=== PATIENT | female | born 1940 | race African-American/Black ===

== ENCOUNTER 2018-05-21 08:58 | Day surgery (SDC) | payer MEDICARE, OTHER ==
[~2018-05-21] VITALS: Ht 157.5 cm; Wt 64.4 kg
[2018-05-21] VITALS (11 sets, daily range): BP systolic 158–175; BP diastolic 58–74
[~2018-05-21 08:58] MED LIST: BENICAR40 MG ORAL; METOPROLOL SUCC25 MG ORAL; PLAVIX75 MG ORAL; SIMVASTATIN40 MG ORAL; ceFAZolin sod 2 GM in NS 55 ML IVPB ONE
--- NOTE | 2018-05-21 09:11 | Pre-Procedure Note/Attestation ---
Pre-Procedure Note/Attestation Complete Prior to Procedure Planned Procedure: right Procedure Narrative: wire localized biopsy of right breast lesion Indications for Procedure Pre-Operative Diagnosis: right breast DCIS Attestation I attest that I discussed the nature of the procedure; its benefits; risks and complications; and alternatives (and the risks and benefits of such alternatives ), prior to the procedure, with the patient (or the patient's legal credit representative). I attest that, if there was a reasonable possibility of needing a blood transfusion, the patient (or the patient's legal credit representative) was given the [facility] standardized written summary, pursuant to the [place] Blood Safety Act ([place] Health and Safety Code # 1645, as amended). I attest that I re-evaluated the patient just prior to the surgery and that there has been no change in the patient's H&P, except as documented below: Papo Tong May 21, 2018 09:11
[2018-05-21] MEDS ORDERED: Bacitracin 50000 Units Vial ONE (09:47)
[2018-05-21] MEDS ORDERED: Lidocaine 1% 10mg/ml/Epi 0.005mg/ml 30ml vial INJ ONE (09:47)
[2018-05-21] MEDS ORDERED: Bupivacaine 0.5% Inj 30 ml vial INJ ONE (09:47)
[2018-05-21] MEDS ORDERED: Lidocaine 1% MPF 10mg/ml 5ml ONE (09:48)
[2018-05-21] MEDS ORDERED: Propofol 200mg/20ml IV ONE (09:48)
[2018-05-21] MEDS ORDERED: Midazolam 2mg/2ml Inj ONE (09:49)
[2018-05-21] MEDS ORDERED: fentaNYL 100 mcg/2 mL IV ONE (09:49)
[2018-05-21] MEDS ORDERED: Zemuron 50mg/5ml Inj IV ONE (10:00)
[2018-05-21] MEDS ORDERED: LR 1000ml ONE (10:00)
[2018-05-21] MEDS ORDERED: NS Irrig 1000ml ONE (10:00)
[2018-05-21] MEDS ORDERED: LR 1000ml 1,000 ML IVLG SCH (10:44)
--- NOTE | 2018-05-21 10:44 | Anethesia Preoperative Eval ---
Anesthesia Pre-op PMH/ROS General Date of Evaluation: May 21, 2018 Time of Evaluation: 10:00 Anesthesiologist: ASA Score: ASA 3 Mallampati Score Class I : Soft palate, uvula, fauces, pillars visible Class II: Soft palate, uvula, fauces visible Class III: Soft palate, base of uvula visible Class IV: Only hard plate visible Mallampati Classification: Class II Surgeon: neto Diagnosis: right breast lesion Surgical Procedure: wire localized excisional biopsy of right breast lesion Anesthesia History: none Allergies: Coded Allergies: No Known Allergies (Unverified , 05/20/18) Past Medical History Cardiovascular: Reports: HTN, other - high cholesterol; Denies: CAD, [place], valve dz, arrhythmia Pulmonary: Denies: asthma, COPD, JIMY, other Gastrointestinal/Genitourinary: Denies: GERD, CRI, ESRD, other Neurologic/Psychiatric: Denies: dementia, CVA, depression/anxiety, TIA, other Endocrine: Denies: DM, hypothyroidism, steroids, other HEENT: Denies: cataract (L), cataract (R), glaucoma, [place] (L), [place] (R), other Hematology/Immune: Reports: other - anticoagulant therapy; Denies: anemia, DVT, bleeding disorder Musculoskeletal/Integumentary: Denies: OA, RA, DJD, DDD, edema, other PMH Narrative: right breast lesion PSxH Narrative: tubal ligation Anesthesia Pre-op Phys. Exam Physician Exam Last Vital Signs Date Time Temp Pulse Resp B/P (MAP) Pulse Ox O2 Delivery O2 Flow Rate FiO2 05/21/18 09:15 97.0 72 20 175/74 (107) 99 97.0 05/21/18 09:13 Room Air Constitutional: NAD Cardiovascular: RRR Respiratory: CTA Gastrointestinal: S/NT/ND Airway Exam Mallampati Score: Class II MO: full ROM: full Teeth: intact, other - upper and lower dental implants Dentures: upper, lower Anesthesia Pre-op A/P Risk Assessment & Plan Assessment: asa 3 Plan: ETGA Status Change Before Surgery: No Pre-Antibiotics Drug: ancef 2 grams Given Within 1 Hr of Incision: Yes Time Given: 10:30 Sarina Drummond M.D. May 21, 2018 10:44
[2018-05-21] MEDS ORDERED: Hydromorphone 0.5mg/0.5ml inj IVP PRN (10:45)
[2018-05-21] MEDS ORDERED: DiphenhydrAMINE 50mg/ml Inj IVP PRN (10:45)
[2018-05-21] MEDS ORDERED: Labetalol 5mg/ml 20ml vial IV PRN (10:45)
[2018-05-21] MEDS ORDERED: fentaNYL 100 mcg/2 mL IV PRN (10:45)
[2018-05-21] MEDS ORDERED: ePHEDrine 50mg/ml Inj ONE (10:58)
[2018-05-21] MEDS ORDERED: Glycopyrrolate 0.2mg/ml 1ml Vial ONE (11:09)
[2018-05-21] MEDS ORDERED: Neostigmine 1mg/ml 10ml Inj ONE (11:09)
[2018-05-21] MEDS ORDERED: Dexamethasone 4mg/ml vial ONE (11:09)
--- NOTE | 2018-05-21 11:23 | Brief Operative Note ---
Immediate Post Operative Note Operative Note Pre-op Diagnosis: right breast DCIS Procedure: wire localized biopsy of right breast lesion Post-op Diagnosis: same as pre-op Surgeon: neto Anesthesiologist: Anesthesia: general, local Specimen: yes Complications: none Condition: stable Fluids: see records Estimated Blood Loss: minimal Drains: none Implant(s) used?: No Papo Tong May 21, 2018 11:23
[2018-05-21] MEDS ORDERED: Tylenol #3 tab (300mg/30mg) ORAL PRN (11:30)
[2018-05-21] MEDS ORDERED: HYDROmorphone 1mg/ml Carpuject SUBQ PRN (11:30)
[2018-05-21] MEDS ORDERED: D5 1/2NS 1,000 ML IV SCH (11:30)
[2018-05-21] MEDS ORDERED: Norco 5mg/325mg tab ORAL PRN (11:30)
--- NOTE | 2018-05-21 11:41 | Immediate Post-Op Evaluation ---
Immediate Post-Op Evalulation Immediate Post-Op Evalulation Procedure: wire localized right breast excisional biopsy Date of Evaluation: May 21, 2018 Time of Evaluation: 11:25 IV Fluids: 300ml LR Blood Products: 0 Estimated Blood Loss: 5ml Urinary Output: 0 Blood Pressure Systolic: 172 Blood Pressure Diastolic: 69 Pulse Rate: 96 Respiratory Rate: 20 O2 Sat by Pulse Oximetry: 100 Temperature (Fahrenheit): 97.1 Pain Score (1-10): 0 Nausea: No Vomiting: No Complications none Patient Status: awake, patent, none Hydration Status: adequate Drug: ancef 2 grams Given Within 1 Hr of Incision: Yes - 10 Time Given: 10:30 Sarina Drummond M.D. May 21, 2018 11:41
--- NOTE | 2018-05-21 13:18 | 48 Hour Post Anesthesia Eval ---
Post Anesthesia Evaluation Procedure: wire localized right breast excisional biopsy Date of Evaluation: May 21, 2018 Time of Evaluation: 12:18 Blood Pressure Systolic: 158 0: 62 Pulse Rate: 71 Respiratory Rate: 18 Temperature (Fahrenheit): 98 O2 Sat by Pulse Oximetry: 100 Airway: patent Nausea: No Vomiting: No Pain Intensity: 0 Hydration Status: adequate Mental Status/LOC: patient returned to baseline Post-Anesthesia Complications: none Follow-up care needed: ready to discharge Sarina Drummond M.D. May 21, 2018 13:18
--- NOTE | 2018-05-22 | Operative Note - Dictated ---
DATE OF OPERATION: 05/21/2018 PREOPERATIVE DIAGNOSIS: Right breast ductal carcinoma in situ. POSTOPERATIVE DIAGNOSIS: Right breast ductal carcinoma in situ. OPERATION PERFORMED: Wire-localized biopsy of right breast lesion. ATTENDING SURGEON: Papo Tong M.D. ANESTHESIOLOGIST: Dr. Drummond. ANESTHESIA: General MANAGER MEDICAL AFFAIRS. ESTIMATED BLOOD LOSS: Minimal. IV FLUIDS: Please see anesthesia records. SPECIMENS: Wire-localized right breast tissue with wire and clip being confirmed radiographically, sent to pathology for review. DRAINS: None. ESTIMATED BLOOD LOSS: Minimal. COMPLICATIONS: None. WOUND CLASSIFICATION: Class I. COUNT: Sponge and needle count correct x2. ANTIBIOTICS: A 2 g Ancef IV given 1 hour prior to cut time. INDICATIONS FOR PROCEDURE: This is a 78-year-old female, who was noted to have spiculated calcifications in the right breast on mammography. Stereotactic core biopsies were performed and DCIS was identified. A clip was left in place and post films identified no remaining calcifications, but clip in appropriate positioning. Further imaging questioned a left breast mass and an MRI was performed and after further workup, the left breast mass was no longer present and no biopsy was necessary. The patient was seen by primary care physician, Dr. Adair and oncologist, Dr. Yanet Rodríguez and after appropriate workup, plans for wire-localized excision were made. The procedure was indicated and recommended. Risks, benefits, and alternatives were discussed with the patient in detail who consented for surgery. The patient was scheduled for localization at the breast center in the morning of procedure followed by surgery. OPERATIVE NOTE: The patient initially went to the breast wood[place] and wire localization was performed of the area of interest with clip being noted. Following this, the patient was preoperatively checked in and site marked. The patient was then taken to the operating room and placed on the operative table in supine position with bilateral arms out. Preoperative time-out was taken identifying the patient, procedure, operative site, and surgical staff. SCDs were placed. General anesthesia was induced. The patient was intubated. The right breast and was clipped, prepped, and draped in the standard surgical fashion. An area from the prior core biopsy site was identified approximately 1-2 cm from the wire localization site. Decision was made to make an elliptical incision around this and after reviewing mammographic and ultrasound findings, and location of the wire, it was found to be appropriate place. Local anesthetic was infiltrated and an elliptical low vertical incision was made around the prior biopsy site. This was taken down to the wire which could be identified and the wire was cut and brought into the operative field. Following this, the distal end of the wire was identified and a circumferential area of tissue including the clip and wire were taken with gender standpoint. The biopsy was oriented with skin being superficial, long silk being the lateral, wire being medial, and short silk being superior. Diagnostic imaging identified that wire and clip were in the sample specimen and this was then sent to pathology for review. Local anesthetic was infiltrated into the operative site. Hemostasis was obtained with electrocautery. Wound was irrigated. Following this, the incision was then closed in a two-layer fashion beginning with 3-0 Vicryl interrupted sutures followed by a 4-0 Monocryl subcuticular running suture. Mastisol and Steri-Strips were placed followed by gauze and dressing. A garment was then placed. The patient tolerated the procedure well, was extubated, and taken to postanesthesia care unit in stable condition where all postoperative instructions and prescriptions were given to the patient. Rui Kim JOB#: [id number] CC:
== END 2018-05-21 12:55 | disposition home or self-care (01) ==
LOC: SUR 08:58
DX: D05.81 Other specified type of carcinoma in situ of right breast (principal); Z79.02 Long term (current) use of antithrombotics/antiplatelets; I10 Essential (primary) hypertension; E78.00 Pure hypercholesterolemia, unspecified
CPT/HCPCS: 19101; J0690; J1100; J2250; J2405; J2704; J2710; J3010; J7120; 94003; 94150

== ENCOUNTER 2018-06-15 05:51 | Day surgery (SDC) | payer MEDICARE, OTHER ==
[~2018-06-15] VITALS: Ht 157.5 cm; Wt 65.3 kg
[2018-06-15] VITALS (10 sets, daily range): BP systolic 119–153; BP diastolic 47–67
[~2018-06-15 05:51] MED LIST changes: -ceFAZolin sod 2 GM in NS 55 ML IVPB ONE
--- NOTE | 2018-06-15 06:49 | Pre-Procedure Note/Attestation ---
Pre-Procedure Note/Attestation Complete Prior to Procedure Planned Procedure: right Procedure Narrative: Re-excision lumpectomy right breast margins Indications for Procedure Pre-Operative Diagnosis: right breast DCIS Attestation I attest that I discussed the nature of the procedure; its benefits; risks and complications; and alternatives (and the risks and benefits of such alternatives ), prior to the procedure, with the patient (or the patient's legal apprenticeship training representative). I attest that, if there was a reasonable possibility of needing a blood transfusion, the patient (or the patient's legal apprenticeship training representative) was given the [facility] standardized written summary, pursuant to the [place] Blood Safety Act ([place] Health and Safety Code # 1645, as amended). I attest that I re-evaluated the patient just prior to the surgery and that there has been no change in the patient's H&P, except as documented below: Papo Tong Jun 15, 2018 06:49
--- NOTE | 2018-06-15 06:53 | History and Physical ---
History of Present Illness General Date patient seen: Jun 15, 2018 Present Illness HPI 78F well known to me from recent surgery. Biopsy proven right breast DCIS s/p lumpectomy. Positive margins requiring re-excision today. Allergies: Coded Allergies: No Known Allergies (Unverified , 05/20/18) Medication History Scheduled Clopidogrel Bisulfate* (Plavix*), 75 MG ORAL DAILY, (Reported) Metoprolol Succinate* (Metoprolol Succinate*), 12.5 MG ORAL DAILY, (Reported) Olmesartan Medoxomil (Benicar), 40 MG ORAL DAILY, (Reported) Simvastatin (Zocor), 40 MG ORAL BEDTIME, (Reported) Patient History Healthcare decision maker N Resuscitation status Advanced Directive on File Past Medical/Surgical History Past Medical/Surgical History: (1) DCIS (ductal carcinoma in situ) of breast Review of Systems All Other Systems: negative except mentioned in HPI Physical Exam General Appearance: no apparent distress Lines, tubes and drains: peripheral HEENT: normocephalic, atraumatic, PERRL Neck: normal inspection Respiratory/Chest: normal breath sounds, no respiratory distress, no accessory muscle use Cardiovascular/Chest: normal rate Abdomen: soft, no organomegaly Extremities: non-tender Skin Exam: normal pigmentation Neurologic: alert, oriented x 3 Last 24 Hour Vital Signs Date Time Temp Pulse Resp B/P (MAP) Pulse Ox O2 Delivery O2 Flow Rate FiO2 06/15/18 06:45 Room Air 06/15/18 06:38 98.3 76 18 153/67 (95) 98 98.3 Height (Feet): 5 Height (Inches): 2.00 Weight (Pounds): 144 Assessment/Plan Problem List: (1) DCIS (ductal carcinoma in situ) of breast Assessment & Plan: Right breast DCIS s/p wire localized lumpectomy. path with positive margin. -re-excision lumpectomy right breast DCIS today -npo -iv fluids -consent -Ancef 2g ICD Codes: D05.10 - Intraductal carcinoma in situ of unspecified breast SNOMED: [id number], [id number] Qualifiers: Qualified Codes: D05.11 - Intraductal carcinoma in situ of right breast Status: stable Papo Tong Jun 15, 2018 06:53
[2018-06-15] MEDS ORDERED: Midazolam 2mg/2ml Inj ONE (07:00)
[2018-06-15] MEDS ORDERED: ceFAZolin sod 2 GM in D5W 110 ML IV ONE (07:00)
[2018-06-15] MEDS ORDERED: fentaNYL 100 mcg/2 mL IV ONE (07:00)
[2018-06-15] MEDS ORDERED: Propofol 200mg/20ml IV ONE (07:00)
[2018-06-15] MEDS ORDERED: Lidocaine 1% MPF 10mg/ml 5ml ONE (07:00)
[2018-06-15] MEDS ORDERED: Bupivacaine 0.5% Inj 30 ml vial INJ ONE (07:16)
[2018-06-15] MEDS ORDERED: Lidocaine 1% 10mg/ml/Epi 0.005mg/ml 30ml vial INJ ONE (07:16)
[2018-06-15] MEDS ORDERED: EPINEPHrine 1mg/1ml Amp ONE (07:16)
[2018-06-15] MEDS ORDERED: Bacitracin 50000 Units Vial ONE (07:17)
[2018-06-15] MEDS ORDERED: LR 1000ml ONE (07:30)
[2018-06-15] MEDS ORDERED: LR 1000ml 1,000 ML IVLG SCH (08:04)
--- NOTE | 2018-06-15 08:04 | Anethesia Preoperative Eval ---
Anesthesia Pre-op PMH/ROS General Date of Evaluation: Jun 15, 2018 Time of Evaluation: 07:15 Anesthesiologist: Darwin ASA Score: ASA 2 Mallampati Score Class I : Soft palate, uvula, fauces, pillars visible Class II: Soft palate, uvula, fauces visible Class III: Soft palate, base of uvula visible Class IV: Only hard plate visible Mallampati Classification: Class II Surgeon: Sav Diagnosis: R breast CA Surgical Procedure: R breast partial mastectomy Anesthesia History: none Family History: no anesthesia problems Allergies: Coded Allergies: No Known Allergies (Unverified , 05/20/18) Past Medical History Cardiovascular: Reports: HTN - stable; Denies: CAD, CT, valve dz, arrhythmia, other Pulmonary: Denies: asthma, COPD, JIMY, other Gastrointestinal/Genitourinary: Reports: GERD - mild Neurologic/Psychiatric: Denies: dementia, CVA, depression/anxiety, TIA, other Endocrine: Denies: DM, hypothyroidism, steroids, other HEENT: Reports: cataract (L), cataract (R) - s/p Sx Hematology/Immune: Denies: anemia, DVT, bleeding disorder, other Musculoskeletal/Integumentary: Denies: OA, RA, DJD, DDD, edema, other PMH Narrative: as above PSxH Narrative: Bilateral cataracts, R breast Anesthesia Pre-op Phys. Exam Physician Exam Last Vital Signs Date Time Temp Pulse Resp B/P (MAP) Pulse Ox O2 Delivery O2 Flow Rate FiO2 06/15/18 06:45 Room Air 06/15/18 06:38 98.3 76 18 153/67 (95) 98 98.3 Constitutional: NAD Neurologic: CN 2-12 intact Cardiovascular: RRR, no M/R/G Respiratory: CTA Gastrointestinal: S/NT/ND Airway Exam Mallampati Score: Class II Neck: stiff ROM: limited Teeth: intact Dentures: no upper, no lower Anesthesia Pre-op A/P Labs see chart Studies Pre-op Studies: EKG - NSR Risk Assessment & Plan Assessment: ASA 2 Plan: GA with LMA Status Change Before Surgery: No Pre-Antibiotics Drug: Ancef 1gr. Given Within 1 Hr of Incision: Yes Time Given: 07:50 Richmond Granados MD Jun 15, 2018 08:04
[2018-06-15] MEDS ORDERED: Ketorolac 30mg Inj IV PRN (08:15)
[2018-06-15] MEDS ORDERED: DiphenhydrAMINE 50mg/ml Inj IVP PRN (08:15)
[2018-06-15] MEDS ORDERED: fentaNYL 100 mcg/2 mL IV PRN (08:15)
--- NOTE | 2018-06-15 08:47 | Immediate Post-Op Evaluation ---
Immediate Post-Op Evalulation Immediate Post-Op Evalulation Procedure: R breast partial mastectomy Date of Evaluation: Jun 15, 2018 Time of Evaluation: 08:46 IV Fluids: 800 Blood Products: none Estimated Blood Loss: min Urinary Output: none Blood Pressure Systolic: 128 Blood Pressure Diastolic: 56 Pulse Rate: 72 Respiratory Rate: 20 O2 Sat by Pulse Oximetry: 99 Temperature (Fahrenheit): 97.5 Pain Score (1-10): 1 Nausea: No Vomiting: No Complications none Patient Status: awake, patent, none Hydration Status: adequate Richmond Granados MD Jun 15, 2018 08:47
--- NOTE | 2018-06-15 08:55 | Brief Operative Note ---
Immediate Post Operative Note Operative Note Pre-op Diagnosis: right breast DCIS Procedure: Re-excisional lumpectomy right breast Post-op Diagnosis: same as pre-op plus - right breast DCIS w/ positive margins s/p lumpectomy Findings: consistent w/pre-op dx studies Surgeon: neto Anesthesiologist: cornelia Anesthesia: general Specimen: yes Complications: none Condition: stable Fluids: see records Estimated Blood Loss: minimal Drains: none Implant(s) used?: No Papo Tong Jun 15, 2018 08:55
--- NOTE | 2018-06-15 09:17 | 48 Hour Post Anesthesia Eval ---
Post Anesthesia Evaluation Procedure: R breast partial mastectomy Date of Evaluation: Jun 15, 2018 Time of Evaluation: 09:16 Blood Pressure Systolic: 124 0: 59 Pulse Rate: 65 Respiratory Rate: 20 Temperature (Fahrenheit): 97.6 O2 Sat by Pulse Oximetry: 98 Airway: patent Nausea: No Vomiting: No Pain Intensity: 1 Hydration Status: adequate Cardiopulmonary Status: stable Mental Status/LOC: patient returned to baseline Follow-up Care/Observations: n/a Post-Anesthesia Complications: none Follow-up care needed: ready to discharge Richmond Granados MD Jun 15, 2018 09:17
[2018-06-15] MEDS ORDERED: D5 1/2NS 1,000 ML IV SCH (16:01)
[2018-06-15] MEDS ORDERED: Tylenol #3 tab (300mg/30mg) ORAL PRN (16:01)
[2018-06-15] MEDS ORDERED: HYDROmorphone 1mg/ml Carpuject SUBQ PRN (16:01)
[2018-06-15] MEDS ORDERED: Norco 5mg/325mg tab ORAL PRN (16:01)
--- NOTE | 2018-06-16 21:15 | Operative Note - Dictated ---
DATE OF OPERATION: 06/15/2018 PREOPERATIVE DIAGNOSIS: Right breast ductal carcinoma in situ with positive margin. POSTOPERATIVE DIAGNOSIS: Right breast ductal carcinoma in situ with positive margin. OPERATION PERFORMED: Reexcisional lumpectomy of right breast DCIS. ATTENDING SURGEON: Papo Tong M.D. AGRONOMY SPECIALIST: None. ANESTHESIOLOGIST: Richmond Granados M.D. ANESTHESIA: General PHYTOPATHOLOGY TEACHER. ESTIMATED BLOOD LOSS: Minimal. IV FLUIDS: Please see anesthesia records. COMPLICATIONS: None. SPECIMEN: right breast reexcisional lumpectomy with a long silk suture marking lateral, short silk suture marking superior, and double silk suture marking posterior. DRAINS: None. IMPLANTS: None. INDICATIONS FOR PROCEDURE: This is a 78-year-old female with biopsy-proven DCIS who is status post lumpectomy. Lumpectomy pathology identified DCIS with a positive margin in the posterior aspect and a less than 1 mm margin in the inferior aspect. Findings were discussed with the patient and multidisciplinary team including oncologist and primary and decision was made for reexcisional biopsy to clear margins. Risks, benefits, and alternatives were discussed with the patient in detail prior to entering the operating room. Consent was obtained and the surgery was indicated and recommended. OPERATIVE NOTE: The patient was taken to the operating room and placed on the operating table in supine position. Preoperative time-out was taken identifying the patient, procedure, operative staff, and surgical site. The right breast had been marked prior. The prior imaging and pathology reports were reviewed. SCDs were placed. IV antibiotics were given prior to cut time. General anesthesia was induced and the patient was intubated. The right breast was clipped, prepped and draped in a standard surgical fashion. The prior surgical incision was opened and extended approximately 1 cm using a fresh #15-scalpel. Once the prior incision was opened, the wound was noted to be nicely healing with fibrinous tissue. An almost semi-capsule had been formed around the prior excision site. At this time, the scar tissue was released from the dermis circumferentially and re-excision was completed paying specific attention into removing the prior scar tissue and larger margins in the inferior and posterior aspect. The posterior aspect was taken down to the fascia, but the fascia was not violated and the muscle was not violated. Once the specimen was removed, it was marked with short silk superior, long silk lateral, and double silk posterior. Specimen was sent to pathology for review. The wound was irrigated with copious amounts of warm saline. Hemostasis was achieved with electrocautery. Local anesthetic was infiltrated in the skin and subcutaneous tissue. Following this, we began our closure beginning with some interrupted 3-0 Vicryl sutures to reapproximate from the underlying tissues overlying the fascia. Following this, the skin incision was closed in two-layer fashion beginning with 3-0 Vicryl interrupted sutures followed by 4-0 Monocryl interrupted sutures. Wound was cleansed. Steri-Strips and Mastisol was placed followed by dressings and a corset. The patient tolerated the procedure well, was extubated and taken to postanesthesia care unit in stable condition. Papo Tong M.D. DR: NOHEMY JOB#: [id number] CC: SAADIA
== END 2018-06-15 10:15 | disposition home or self-care (01) ==
LOC: SUR 05:51
DX: D05.11 Intraductal carcinoma in situ of right breast (principal); M81.0 Age-related osteoporosis without current pathological fracture; I10 Essential (primary) hypertension; K21.9 Gastro-esophageal reflux disease without esophagitis; J31.0 Chronic rhinitis; E78.00 Pure hypercholesterolemia, unspecified; I27.20 Pulmonary hypertension, unspecified; E66.3 Overweight; J45.909 Unspecified asthma, uncomplicated; I65.29 Occlusion and stenosis of unspecified carotid artery
CPT/HCPCS: 19301; J0171; J0690; J2250; J2704; J3010; J3490; J7120; 94003; 94150